=== PATIENT | female | born 1975 | race Caucasian/White ===

== ENCOUNTER → 2020-11-10 10:50 | Outpatient (CLI) | payer OTHER, SELFPAY | PROVIDERS: PCP Student in an Organized Health Care Education/Training Program; Referring Provider Obstetrics & Gynecology; Visit Provider Obstetrics & Gynecology | DX: Z20.828 Contact with and (suspected) exposure to other viral communicable diseases (principal); R51.9 Headache, unspecified | CPT/HCPCS: 87426; C9803 ==

== ENCOUNTER → 2024-10-29 | Outpatient (CLI) | payer OTHER, SELFPAY ==
[2024-10-29 14:39] VITALS: BP 149/81; PULSE 113; RESP 18; TEMP 37.8; O2SAT 98; BMI 25.5
[2024-10-29 14:43] VITALS: BP 149/81; PULSE 113; RESP 18; TEMP 37.8; O2SAT 98
--- NOTE | 2024-10-29 14:52 | EX.ED.VIS.UR ---
HPI <PATRICIA Hernandez - Last Filed: 10/29/24 20:39> HPI - URI History of Present Illness Chief Complaint: Sore Throat Narrative Narrative: Patient presenting today with concerns for left-sided peritonsillar abscess. She has had this before. The area became swollen yesterday and she contacted her ENT doctor, Dr. Najera who saw her in the office this morning and performed an I&D of the area and started her on prednisone. She has had 20 mg of prednisone so far and began 300 mg clindamycin yesterday, she has had 4 doses so far. ROS <PATRICIA Hernandez - Last Filed: 10/29/24 20:39> ROS ED Constitutional Constitutional ED: Reports chills and fever(s) ENT ENT ED: Reports sore throat Cardiovascular Cardiovascular: Denies chest pain Respiratory/Chest Respiratory/Chest: Denies dyspnea Gastrointestinal Gastrointestinal: Denies abdominal pain, nausea or vomiting Musculoskeletal Musculoskeletal: Denies arthralgias or myalgias Integumentary Denies rash Neurologic Neurologic: Denies weakness PFSH <PATRICIA Hernandez Last Filed: 10/29/24 20:39> PFSH Medical History no medical history Home Medications ?Medication ?Instructions ?Recorded ?Last Taken ?Type zolpidem 5 mg tablet 5 mg PO QHS PRN PRN Insomnia 06/15/16 Unknown History clindamycin HCl 300 mg capsule 300 mg PO Q6H ##40 06/16/16 Unknown Rx (Cleocin HCl) clindamycin HCl 150 mg capsule 300 mg (2 x 150 mg) PO TID ##50 06/17/16 Unknown Rx Allergy/AdvReac Type Severity Reaction Status Date / Time cephalexin monohydrate (From Allergy Rash Verified 10/29/24 14:38 Keflex) Penicillins Allergy Rash Verified 10/29/24 14:38 Family History no significant family his Surgical History no surgical history Social History Smoking Status: Never smoker EXAM <PATRICIA Hernandez Last Filed: 10/29/24 20:39> Physical Exam Const Vital Signs: 10/29/24 14:39 10/29/24 14:43 10/29/24 16:13 Temperature 100.1 F H 100.1 F H Temperature Source Oral Oral Pulse Rate 113 H 113 H 96 Respiratory Rate 18 18 18 Blood Pressure 149/81 H 149/81 H 130/77 H Blood Pressure Mean 103 103 94 Pulse Ox 98 98 98 Oxygen Delivery Method Room Air Room Air Room Air 10/29/24 17:00 Temperature Temperature Source Pulse Rate Respiratory Rate 18 Blood Pressure 135/90 H Blood Pressure Mean 104 Pulse Ox 97 Oxygen Delivery Method Positive well nourished, well developed and no apparent distress General Appearance ED: well developed HEENT Reports normocephalic, head/scalp atraumatic and dry mucous membranes HEENT Narrative: Edematous left tonsil and left soft palate with a midline uvula, tolerating secretions, no drooling, no stridor. Mouth ED: Yes dry mucous membranes Mouth: dry mucous membranes Eyes PERRL and EOMs intact bilaterally Neck full ROM and supple Chest Wall inspection of chest normal Resp normal respiratory effort and clear to auscultation bilaterally Cardio regular rate and regular rhythm Back/Spine normal ROM and normal to inspection Extremity normal to inspection and full ROM Neuro oriented x3, CN's II-XII intact bilaterally, moves all extremities, no focal motor deficits and no sensory deficits noted Sensorium / Orientation: awake and alert Psych mental status grossly normal and thought process normal Skin no rashes or lesions noted and no wounds <Dr. Marcos Mckeon MD - Last Filed: 11/02/24 11:23> Physical Exam Const Vital Signs: 10/29/24 14:39 10/29/24 14:43 10/29/24 16:13 Temperature 100.1 F H 100.1 F H Temperature Source Oral Oral Pulse Rate 113 H 113 H 96 Respiratory Rate 18 18 18 Blood Pressure 149/81 H 149/81 H 130/77 H Blood Pressure Mean 103 103 94 Pulse Ox 98 98 98 Oxygen Delivery Method Room Air Room Air Room Air 10/29/24 17:00 Temperature Temperature Source Pulse Rate Respiratory Rate 18 Blood Pressure 135/90 H Blood Pressure Mean 104 Pulse Ox 97 Oxygen Delivery Method MDM <PATRICIA Hernandez - Last Filed: 10/29/24 20:39> MDM MDM Narrative Medical decision making narrative: Patient presenting today due to concerns for left-sided tonsillar abscess, she reports that she has had this in the past. She saw Dr. Najera this morning who I&D the area, she started clindamycin 300 mg yesterday and has had 4 doses of this. She is febrile here and tachycardic. She does appear dry. She was given IV fluids and clindamycin here. The attending did speak with ENT who requested a Monospot and labs. Monospot is negative, she has a WBC of 18.5, BMP is unremarkable. Patient reported that she would need to be admitted to a [facility] facility. She is tolerating p.o. fluids here and does report improvement of her symptoms. She would like to be discharged home. She reports that if she develops any worsening symptoms she will go to a [facility] facility. She will continue taking the clindamycin at home and follow-up with ENT. She will be discharged home in stable condition. Return instructions were discussed with her. I have personally performed a face to face assessment of the patient and have reviewed the DHIRAJ Note. I performed a substantive portion of the visit including all aspects of the following. My duran findings include: History is remarkable for I&D of left peritonsillar abscess by Dr. Sawant earlier today. He presents because of persistent fever, no urine output since yesterday and thirst. She has taken 4 doses of clindamycin. She is able to drink fluids. She feels like something is in her throat. Exam is patient has evidence of a peritonsillar abscess on the left. Incision site noted. There is still some slight fluctuance. Uvula is midline. The uvula is not displaced. Trachea is midline. There is no stridor. Heart is rapid and regular without murmur, gallop or rub. Lungs are clear to auscultation. Medical Decision Making patient's has a peritonsillar abscess and has systemic symptoms due to this. Because of her allergy to penicillin and cephalosporin she was treated with IV clindamycin. 1 L normal saline was ordered. Spoke with Dr. Bk Najera. He requested a Monospot and blood work. He was informed that blood work was ordered. Would add Monospot. If Monospot positive treat with steroids. Dr. Patel stated if she needs to be admitted she would need to be admitted to a [facility] facility. She states if she is able to drink and feels better she would like to go home. If she gets worse she will go to a [facility] facility. Other additions or changes: [None] Lab Data Attestation: I reviewed the patient's lab results. Labs: Laboratory Results - last 24 hr 10/29/24 14:57 WBC 18.5 H RBC 4.89 Hgb 14.4 Hct 42.1 MCV 86.1 MCH 29.4 MCHC 34.2 RDW Std Deviation 40.6 RDW Coeff of Tia 13.0 Plt Count 225 MPV 10.2 Immature Gran % (Auto) 0.600 Neut % (Auto) 81.8 H Lymph % (Auto) 1.4 L Reynolds % (Auto) 1.8 Eos % (Auto) 14.2 H Baso % (Auto) 0.2 Absolute Neuts (auto) 15.1 H Absolute Lymphs (auto) 0.26 L Nucleated RBC % 0 Differential Comment SCANNED Sodium 136 Potassium 3.8 Chloride 104 Carbon Dioxide 24.0 Anion Gap 8 BUN 9 Creatinine 1.01 Estim Creat Clear Calc 68.90 Est GFR (MDRD) Af Amer 75 Est GFR (MDRD) Non-Af 62 BUN/Creatinine Ratio 8.9 L Glucose 172 H Calcium 9.4 Monoscreen Negative <Dr. Marcos Mckeon MD - Last Filed: 11/02/24 11:23> [facility] MDM Narrative Medical decision making narrative: Patient presenting today due to concerns for left-sided tonsillar abscess, she reports that she has had this in the past. She saw Dr. Najera this morning who I&D the area, she started clindamycin 300 mg yesterday and has had 4 doses of this. She is febrile here and tachycardic. She does appear dry. I have personally performed a face to face assessment of the patient and have reviewed the DHIRAJ Note. I performed a substantive portion of the visit including all aspects of the following. My duran findings include: History is remarkable for I&D of left peritonsillar abscess by Dr. Sawant earlier today. He presents because of persistent fever, no urine output since yesterday and thirst. She has taken 4 doses of clindamycin. She is able to drink fluids. She feels like something is in her throat. Exam is patient has evidence of a peritonsillar abscess on the left. Incision site noted. There is still some slight fluctuance. Uvula is midline. The uvula is not displaced. Trachea is midline. There is no stridor. Heart is rapid and regular without murmur, gallop or rub. Lungs are clear to auscultation. Medical Decision Making patient's has a peritonsillar abscess and has systemic symptoms due to this. Because of her allergy to penicillin and cephalosporin she was treated with IV clindamycin. 1 L normal saline was ordered. Spoke with Dr. Bk Najera. He requested a Monospot and blood work. He was informed that blood work was ordered. Would add Monospot. If Monospot positive treat with steroids. Dr. Patel stated if she needs to be admitted she would need to be admitted to a [facility] facility. She states if she is able to drink and feels better she would like to go home. If she gets worse she will go to a [facility] facility. Other additions or changes: [None] Lab Data Lab results narrative: CBC is remarkable for an elevated white count with a shift. BMP is normal. Labs: Laboratory Results - last 24 hr 10/29/24 14:57 WBC 18.5 H RBC 4.89 Hgb 14.4 Hct 42.1 MCV 86.1 MCH 29.4 MCHC 34.2 RDW Std Deviation 40.6 RDW Coeff of Tia 13.0 Plt Count 225 MPV 10.2 Immature Gran % (Auto) 0.600 Neut % (Auto) 81.8 H Lymph % (Auto) 1.4 L Reynolds % (Auto) 1.8 Eos % (Auto) 14.2 H Baso % (Auto) 0.2 Absolute Neuts (auto) 15.1 H Absolute Lymphs (auto) 0.26 L Nucleated RBC % 0 Differential Comment SCANNED Sodium 136 Potassium 3.8 Chloride 104 Carbon Dioxide 24.0 Anion Gap 8 BUN 9 Creatinine 1.01 Estim Creat Clear Calc 68.90 Est GFR (MDRD) Af Amer 75 Est GFR (MDRD) Non-Af 62 BUN/Creatinine Ratio 8.9 L Glucose 172 H Calcium 9.4 Monoscreen Negative Discharge Plan Triage Chief Complaint: Sore Throat ED Midlevel Provider: Dana Robbins ED Provider: Marcos Mckeon Dx/Rx/DC Orders Clinical Impression: Abscess, peritonsillar, Sinus tachycardia, Leukocytosis Primary Care Provider: Akhil Ramirez Disposition Disposition: Home, Self Care Discharge Date/Time: 10/29/24 18:02
[2024-10-29] MEDS: 0.9% Normal Saline (1000mL) 1,000 ML 999 ML IV (15:01)
[2024-10-29] MEDS: Ketorolac 15 MG/ML Vial IV (15:02)
[2024-10-29 15:05] LABS: Absolute Lymphocyte Count 0.26 X10^3/uL (0.83-4.51); Absolute Neutrophil Count 15.1 X10^3/uL (2.0-7.7); Basophil# 0.03 X10^3/uL; Basophil% 0.2 % (0-1); Eosinophil# 2.62 X10^3/uL; Eosinophils% 14.2 % (0-5); Hematocrit 42.1 % (37-47); Hemoglobin 14.4 g/dL (12.0-15.0); Lymphocyte # 0.26 X10^3/ul (0.83-4.51); Lymphocyte % 1.4 % (19-41); Mean Corp Hgb Conc 34.2 g/dL (32-36); Mean Corpuscular Hgb 29.4 pg (27.0-32.0); Mean Corpuscular Volume 86.1 fL (81-99); Mean Platelet Vol. 10.2 fl (6.2-12.0); Monocyte# 0.33 X10^3/uL; Monocyte% 1.8 % (0-10); NRBC Flagged by Analyzer 0 % (0-5); Neutrophil # 15.14 X10^3/uL (2.7-7.7); Neutrophil % 81.8 % (47-70); POSITIVE DIFFERENTIAL YES; POSITIVE MORPHOLOGY YES; Platelet Count 225 K/mm3 (150-450); RBC Distribution Width SD 40.6 fl (35.1-43.9); Red Blood Count 4.89 M/mm3 (4.2-5.4); White Blood Count 18.5 K/mm3 (4.4-11.0)
[2024-10-29] MEDS: Clindamycin 600 MG/50 ML BAG 100 MG IV (15:06)
[2024-10-29 15:37] LABS: Anion Gap 8 (5-15); BUN 9 mg/dL (7-18); BUN/Creat Ratio 8.9 RATIO (10-20); Calcium,Total 9.4 mg/dL (8.5-10.1); Chloride 104 mmol/L (98-107); Creatinine, Serum 1.01 mg/dL (0.55-1.02); EST Glomerular Filtration Rate 62 mL/min (>60); Est Glom Filt Rate - Afr Amer 75 mL/min (>60); Glucose 172 mg/dL (74-106); Potassium 3.8 mmol/L (3.5-5.1); Sodium Level 136 mmol/L (136-145)
[2024-10-29 16:08] LABS: Differential Indicated SCAN CRITERIA MET
[2024-10-29 16:13] VITALS: BP 130/77; PULSE 96; RESP 18; O2SAT 98
[2024-10-29 16:28] LABS: Differential Comment SCANNED
[2024-10-29 17:00] VITALS: BP 135/90; RESP 18; O2SAT 97
[2024-10-29] MEDS: dexAMETHasone 10 MG/ML Vial 8 MG PO.IVFORM (18:00)
[2024-10-29 18:45] LABS: Internal QC Validated? YES +Cl - CLEAR BKGD; Monotest Negative (Negative); Record Kit Lot#, Mono 13241033
== END | disposition home or self-care (01) ==
LOC: ED 15:05 → LABSPEC 16:04
PROVIDERS: Emergency Provider Emergency Medicine; PCP Student in an Organized Health Care Education/Training Program; Referring Provider Otolaryngology; Visit Provider Otolaryngology
DX: J36 Peritonsillar abscess (principal); R00.0 Tachycardia, unspecified; D72.829 Elevated white blood cell count, unspecified
CPT/HCPCS: 80048; 85025; 86308; 87070; 87077; 87205; 99284; A4216